=== PATIENT | male | born 1995 | race Caucasian/White ===

== ENCOUNTER → 2021-04-29 10:10 | Outpatient (CLI) | payer MEDICAID, SELFPAY | PROVIDERS: PCP Nurse Practitioner Family; Visit Provider Urology | DX: R55 Syncope and collapse (principal); R06.00 Dyspnea, unspecified; Z89.611 Acquired absence of right leg above knee; Z89.612 Acquired absence of left leg above knee | CPT/HCPCS: 93270 ==

== ENCOUNTER → 2021-05-07 14:41 | Outpatient (CLI) | payer MEDICAID, SELFPAY ==
--- NOTE | 2021-05-07 14:46 | CA_ITS ---
APPROVED REPORT EXAM: Comprehensive 2D, Doppler, and color-flow Echocardiogram [employer] Department Head: Deepti Alexis, RCS, RVS Wt: 000lbs BSA: 0.00 HR: 52 bpm BP: 121/59 mmHg Rhythm: Bradycardia Indications: Spinal Bifida, SOB, Syncopal episode, smoker Echo Enhancing Agent Comments: Technically limited due to angles of incidence with extreme body habitus. 2D Dimensions IVSd 0.87 cm LVEF (Visual) 67.00 % PWd 0.78 cm LVDd 4.19 cm LVDs 2.65 cm Aortic Root 2.59 cm Left Atrium 2.07 cm LVOT 1.76 cm (M/F) 1.5-2.5 M-Mode Dimensions EPSs 0.41 cm TAPSE 1.78 (<1.7) LV Diastology E Decel Time 130.00 (160-240 msec) E/A Ratio 1.84 MED E' 10.70 (< 7 cm/sec) MED A' 2.40 cm/s E'/MED E' Ratio 6.53 (>14) Aortic Valve AoV Peak Elliott. 105.00 (50-130 cm/s) AO Peak GR. 4.40 mmHg AO Mean GR. 2.20 (<5 mmHg) AO VTI 21.44 (18-25 cm) Mitral Valve MV A Velocity 38.00 (40-130 cm/s) E/A Ratio 1.84 MV Decel. Time 130.00 (160-240 ms) Pulmonary Valve PV Peak Velocity 104.00 (50-150 cm/s) Left Ventricle Left atrium is normal size, left ventricle is normal size, there is no concentric left ventricular hypertrophy, visually estimated ejection fraction 55% with no regional wall motion abnormality. Diastolic parameters are within normal range. Right Ventricle Right atrium and right ventricle are normal size and contractility. Aortic Valve Aortic valve is grossly normal, there is no aortic stenosis or aortic insufficiency. Mitral Valve Mitral valve grossly normal, there is trace mitral regurgitation. Tricuspid Valve Tricuspid valve grossly normal, there is trace tricuspid regurgitation. Pulmonic Valve Pulmonic valve is poorly visualized. Great Vessels Aortic root is normal size. Pericardium No significant pericardial effusion noted. Conclusion 1. Normal left ventricular size, preserved left ventricular systolic function, visually estimated ejection fraction 55% with no regional wall motion abnormality, diastolic parameters are within normal range. 2. Trace mitral and tricuspid regurgitation. 3. No significant pericardial effusion noted. Electronically signed by : Mt Meza, 05/07/2021 18:02:28
== END ==
PROVIDERS: PCP Nurse Practitioner Family; Visit Provider Urology
DX: R06.00 Dyspnea, unspecified (principal); R55 Syncope and collapse; Z89.611 Acquired absence of right leg above knee; Z89.612 Acquired absence of left leg above knee
CPT/HCPCS: 93306